=== PATIENT | female | born 1970 | race Two or more races ===

== ENCOUNTER 2023-04-29 01:44 | Emergency (ER) | payer MEDICAID ==
[~2023-04-29] VITALS: Ht 154.9 cm; Wt 56.8 kg
[2023-04-29] MEDS ORDERED: diphenhydrAMINE 50 mg/ml inj IM ONE (02:05)
[2023-04-29] MEDS ORDERED: haloperidol lactate 5mg/ml inj IM ONE (02:05)
[2023-04-29 02:21] VITALS: BP 115/67; PULSE 105; O2SAT 98
[2023-04-29 04:24] LABS: BASOPHILS # (AUTO) 0.1 X10'3 (0-0.2); BASOPHILS % (AUTO) 1.3 % (0-1); EOSINOPHILS # (AUTO) 0.1 X10'3 (0-0.9); EOSINOPHILS % (AUTO) 1.6 % (0-6); HEMATOCRIT 38.6 % (35.0-45.0); HEMOGLOBIN 12.8 g/dl (12.0-16.0); LYMPHOCYTES # (AUTO) 2.5 X10'3 (1.1-4.8); MEAN CORPUSCULAR HEMOGLOBIN 29.7 PG (27.0-31.0); MEAN CORPUSCULAR HGB CONC 33.1 g/dL (33.0-36.5); MEAN CORPUSCULAR VOLUME 89.7 FL (78-98); MEAN PLATELET VOLUME 9.1 FL (7.4-10.4); MONOCYTES # (AUTO) 0.4 X10'3 (0-0.9); NEUTROPHILS # (AUTO) 3.1 X10'3 (1.8-7.7); NEUTROPHILS % (AUTO) 50.1 % (42-75); PLATELET COUNT 293 X10'3 (140-440); RED BLOOD COUNT 4.31 X10'6 (4.20-5.60); RED CELL DISTRIBUTION WIDTH 13.7 % (11.5-14.5); WHITE BLOOD COUNT 6.2 X10'3 (4.5-11.0)
[2023-04-29 04:27] LABS: URINE HCG NEGATIVE (NEG)
[2023-04-29 04:34] LABS: URINE AMPHETAMINE SCREEN NEGATIVE (Neg); URINE BARBITUATE SCREEN NEGATIVE (Neg); URINE BENZODIAZEPINES SCREEN POSITIVE (Neg); URINE CANNABINOID SCREEN NEGATIVE (Neg); URINE COCAINE SCREEN NEGATIVE (Neg); URINE METHADONE SCREEN NEGATIVE (Neg); URINE OPIATE SCREEN NEGATIVE (Neg); URINE PHENCYCLIDINE SCREEN NEGATIVE (Neg)
[2023-04-29 04:41] LABS: ALANINE AMINOTRANSFERASE 17 U/L (12-78); ALBUMIN 3.4 G/DL (3.4-5.0); ALBUMIN/GLOBULIN RATIO 0.8 (1.1-1.5); ALKALINE PHOSPHATASE 69 IU/L (46-116); ANION GAP 12 (8-16); ASPARTATE AMINO TRANSFERASE 20 U/L (10-37); BILIRUBIN,TOTAL 0.1 MG/DL (0.1-1.0); BLOOD UREA NITROGEN 4 MG/DL (7-18); BUN/CREATININE RATIO 5.8 (10.0-20.0); CALCIUM 8.7 MG/DL (8.5-10.1); CHLORIDE 109 MMOL/L (99-107); CREATININE 0.69 MG/DL (0.40-0.90); GLUCOSE 106 MG/DL (70-104); POTASSIUM 3.7 MMOL/L (3.5-5.1); SODIUM 145 MMOL/L (135-145); TOTAL CARBON DIOXIDE 24.1 MMOL/L (24-32); TOTAL PROTEIN 7.5 G/DL (6.4-8.2); eGFR 89 ML/MIN
[2023-04-29 04:49] LABS: ETHANOL 203 MG/DL (<10)
[2023-04-29 05:24] VITALS: RESP 18
--- NOTE | 2023-04-29 06:30 | NUR ---
patient laying in bed resting quietly, no distress noted.
[2023-04-29] MEDS ORDERED: NALT50TA PO (07:02)
[2023-04-29] MEDS ORDERED: TRAZ-251 PO (07:02)
[2023-04-29] MEDS ORDERED: GABA300C PO (07:02)
--- NOTE | 2023-04-29 07:36 | NUR ---
checked on patient, visibly laying in bed resting quietly, no distress noted.
--- NOTE | 2023-04-29 08:32 | NUR ---
patient laying in bed, resting quietly.
--- NOTE | 2023-04-29 10:25 | NUR ---
patient in room, laying in bed with lights out, resting quietly with no distress noted.
--- NOTE | 2023-04-29 10:45 | NUR ---
patient was given water, no distress noted.
--- NOTE | 2023-04-29 12:01 | NUR ---
patient is compliant with care, laying in bed resting quietly, no distress noted.
== END 2023-04-29 14:51 | disposition home or self-care (01) ==
LOC: ER 01:45
DX: R45.851 Suicidal ideations (principal); Z20.822 Contact with and (suspected) exposure to COVID-19; Z79.899 Other long term (current) drug therapy
CPT/HCPCS: 36415; 80053; 80305; 80320; 81025; 84443; 85025; 87811; 96372; 99285; J1200; J1630